=== PATIENT | male | born 1990 | race Caucasian/White ===

== ENCOUNTER 2017-04-05 18:40 | Emergency (ER) | payer OTHER ==
[~2017-04-05] VITALS: Ht 182.9 cm; Wt 70.3 kg
[2017-04-05] MEDS ORDERED: CELEXA40 MG PO (19:01)
[2017-04-05] MEDS ORDERED: PAXIL10 MG PO (21:34)
== END 2017-04-05 21:55 | disposition home or self-care (01) ==
LOC: ED 18:40
DX: F41.0 Panic disorder [episodic paroxysmal anxiety] (principal); F17.200 Nicotine dependence, unspecified, uncomplicated; F32.9 Major depressive disorder, single episode, unspecified; Z79.899 Other long term (current) drug therapy
CPT/HCPCS: 36415; 80053; 80176; 81001; 84436; 84443; 84479; 84480; 85025; 96372; 99284; G0480; J2060